=== PATIENT | female | born 1990 | race Caucasian/White ===

== ENCOUNTER 2020-12-11 10:08 | Day surgery (SDC) | payer OTHER ==
[2020-12-09 14:07] VITALS: BMI 38.7
--- NOTE | 2020-12-11 09:46 | P.GSHP ---
History of Present Illness H&P Date: 12/11/20 CHIEF COMPLAINT: Colon screen HISTORY OF PRESENT ILLNESS: The patient is a 30-year-old female who presents for colon screen. Lower endoscopy was offered for further evaluation and management. PAST MEDICAL HISTORY: Please see list. PAST SURGICAL HISTORY: Please see list. MEDICATIONS: Please see list. ALLERGIES: Please see list. SOCIAL HISTORY: No illicit drug use FAMILY HISTORY: No reports of Crohn disease or ulcerative colitis. REVIEW OF ORGAN SYSTEMS: CONSTITUTIONAL: No reports of fevers or chills. PHYSICAL EXAM: VITAL SIGNS: Stable GENERAL: Well-developed pleasant in no acute distress. HEENT: No scleral icterus. Extraocular movements grossly intact. Moist buccal mucosa. NECK: Supple without lymphadenopathy. CHEST: Unlabored respirations. Equal bilateral excursions. CARDIOVASCULAR: Regular rate and rhythm. Distal 2+ pulses. ABDOMEN: Soft, nontender, nondistended. MUSCULOSKELETAL: No clubbing, cyanosis, or edema. ASSESSMENT: 1. Colon screen. PLAN: 1. Recommend proceeding with a lower endoscopy Past Medical History Past Medical History: Chest Pain / Angina, COPD, GERD/Reflux, Hypertension, Myocardial Infarction ([place]) Additional Past Medical History / Comment(s): hemorrhoid. allergies Last Myocardial Infarction Date:: 2010 History of Any Multi-Drug Resistant Organisms: None Reported Past Surgical History: Cholecystectomy, Tonsillectomy Past Anesthesia/Blood Transfusion Reactions: Motion Sickness Smoking Status: Former smoker Medications and Allergies Home Medications Medication Instructions Recorded Confirmed Type Cetirizine HCl [Zyrtec] 10 mg PO HS 12/09/20 12/09/20 History Docusate [Colace] 100 mg PO DAILY 12/09/20 12/09/20 History LORazepam [Ativan] 0.5 mg PO DAILY PRN 12/09/20 12/09/20 History Levothyroxine Sodium [Synthroid] 125 mcg PO DAILY 12/09/20 12/09/20 History Metoprolol Succinate [Kapspargo 25 mg PO DAILY 12/09/20 12/09/20 History Sprinkle] Nortriptyline [Pamelor] 100 mg PO DAILY 12/09/20 12/09/20 History Omeprazole [PriLOSEC] 40 mg PO HS 12/09/20 12/09/20 History lisinopriL 40 mg PO HS 12/09/20 12/09/20 History medroxyPROGESTERone [Depo-Provera] 150 mg IM Q3M 12/09/20 12/09/20 History polyethylene glycoL 3350 [Miralax] 17 gm PO DAILY 12/09/20 12/09/20 History rOPINIRole HCL [Requip] 1 mg PO HS 12/09/20 12/09/20 History Allergies Allergy/AdvReac Type Severity Reaction Status Date / Time Penicillins Allergy Rash/Hives Verified 12/09/20 13:54 sulfamethoxazole Allergy Nausea & Verified 12/09/20 13:54 [From Bactrim] Vomiting trimethoprim [From Bactrim] Allergy Nausea & Verified 12/09/20 13:54 Vomiting
[~2020-12-11 10:08] MED LIST: LACTATED RINGERS 1,000 ML IV SCH; LIDOCAINE 1% (10MG/ML) FOR IV START INTRADERMA PRN
[2020-12-11 10:35] VITALS: TEMP 97.8
[2020-12-11] MEDS ORDERED: LIDOCAINE 1% INJ 10MG/ML (20 ML MDV) ONE (11:17)
[2020-12-11] MEDS ORDERED: PROPOFOL 10 MG/ML 20 ML VIAL IV ONE (11:17)
[2020-12-11 11:55] VITALS: RESP 18
[2020-12-11 12:03] VITALS: BP 120/76; PULSE 86
--- NOTE | 2020-12-16 05:48 | P.PCN ---
Date of Procedure: 12/11/20 Description of Procedure: PREOPERATIVE DIAGNOSIS: Rectal bleeding Anorectal pain Change in bowel habits POSTOPERATIVE DIAGNOSIS: Anal fissure Internal/external complicated greater hemorrhoids Sigmoid colon polyp OPERATION: Colonoscopy to the cecum, ileocecal valve and appendiceal orifice. Colonoscopy with cold forceps biopsy SURGEON: Jacinta Reyes MD. ANESTHESIA: MAC. INDICATIONS: The patient is a 30-year-old female who presents with change in bowel habits including anorectal pain and rectal bleeding. Benefits and risks were described and informed consent was obtained. DESCRIPTION OF PROCEDURE: The patient had undergone Suprep. She had been brought into the operating room and laid in the left lateral decubitus position. After adequate intravenous sedation, the rectum was examined with 2% lidocaine jelly. External hemorrhoids were encountered. The rectal tone was within normal limits. No lesions were palpated in the rectal vault. An Olympus colonoscope was advanced until the cecum, ileocecal valve and appendiceal orifice were clearly viewed. The prep was excellent. No scattered diverticulosis was encountered. A 4 mm sigmoid colon polyp at 35 cm from the anal verge was removed using cold forceps. No evidence of focal colitis was found. Retroflexion of the scope demonstrated grade 3 internal hemorrhoids without active bleeding but with recent inflammation. The colon was desufflated. The patient had tolerated the procedure well. Withdrawal time was over 6 minutes. FINDINGS: Aronchick preparation quality scale 1 (1-5) Internal hemorrhoids, grade 3 External prolapsed hemorrhoids, grade 3 Anorectal fissure 2 without active bleeding but with inflammation No arteriovenous malformations. A 4 mm sigmoid colon polyp at 35 cm from the anal verge was removed using cold forceps. No focal colitis. RECOMMENDATIONS: Lower endoscopy in 8 years, 2028 due to polyps Sitz baths for anal fissure Lidocaine cream for anal fissure Plan - Discharge Summary Discharge Rx Participant: No New Discharge Prescriptions: New Lidocaine [Lidocaine 5% Rectal Cream] 1 applic RECTAL BID #15 gm Continue rOPINIRole HCL [Requip] 1 mg PO HS lisinopriL 40 mg PO HS Omeprazole [PriLOSEC] 40 mg PO HS Docusate [Colace] 100 mg PO DAILY polyethylene glycoL 3350 [Miralax] 17 gm PO DAILY Nortriptyline [Pamelor] 100 mg PO DAILY Metoprolol Succinate [Kapspargo Sprinkle] 25 mg PO DAILY Levothyroxine Sodium [Synthroid] 125 mcg PO DAILY LORazepam [Ativan] 0.5 mg PO DAILY PRN PRN Reason: Anxiety Cetirizine HCl [Zyrtec] 10 mg PO HS medroxyPROGESTERone [Depo-Provera] 150 mg IM Q3M Discharge Medication List Cetirizine HCl [Zyrtec] 10 mg PO HS 12/09/20 [History] Docusate [Colace] 100 mg PO DAILY 12/09/20 [History] LORazepam [Ativan] 0.5 mg PO DAILY PRN 12/09/20 [History] Levothyroxine Sodium [Synthroid] 125 mcg PO DAILY 12/09/20 [History] Metoprolol Succinate [Kapspargo Sprinkle] 25 mg PO DAILY 12/09/20 [History] Nortriptyline [Pamelor] 100 mg PO DAILY 12/09/20 [History] Omeprazole [PriLOSEC] 40 mg PO HS 12/09/20 [History] lisinopriL 40 mg PO HS 12/09/20 [History] medroxyPROGESTERone [Depo-Provera] 150 mg IM Q3M 12/09/20 [History] polyethylene glycoL 3350 [Miralax] 17 gm PO DAILY 12/09/20 [History] rOPINIRole HCL [Requip] 1 mg PO HS 12/09/20 [History] Lidocaine [Lidocaine 5% Rectal Cream] 1 applic RECTAL BID #15 gm 12/11/20 [Rx] Follow up Appointment(s)/Referral(s): Jacinta Reyes MD [STAFF PHYSICIAN] - 12/17/20 Patient Instructions/Handouts: *[facility] - (Anesthesia) Endoscopy Discharge Instructions, Hemorrhoids (DC), Rectal Bleeding (DC), Anal Fissure (DC), Sitz Bath (DC) Activity/Diet/Wound Care/Special Instructions: Do sitz bath, soak in bath tub, 15 minutes warm water three times daily including after bowel movements. Use lidocaine jelly on anus for pain twice daily Discharge Disposition: HOME SELF-CARE
== END 2020-12-11 12:37 | disposition home or self-care (01) ==
LOC: ORWHC2ENDO 10:08
PROVIDERS: ATTEND Surgery Plastic and Reconstructive Surgery
DX: K63.5 Polyp of colon (principal); K60.2 Anal fissure, unspecified; K64.2 Third degree hemorrhoids; K64.8 Other hemorrhoids; I10 Essential (primary) hypertension; I25.2 Old myocardial infarction; J44.9 Chronic obstructive pulmonary disease, unspecified; E07.9 Disorder of thyroid, unspecified; K21.9 Gastro-esophageal reflux disease without esophagitis; F17.290 Nicotine dependence, other tobacco product, uncomplicated; Z88.8 Allergy status to other drugs, medicaments and biological substances; Z88.2 Allergy status to sulfonamides; Z88.0 Allergy status to penicillin; Z79.899 Other long term (current) drug therapy; Z79.890 Hormone replacement therapy; Z90.49 Acquired absence of other specified parts of digestive tract; Z90.89 Acquired absence of other organs; Z91.89 Other specified personal risk factors, not elsewhere classified; Z91.048 Other nonmedicinal substance allergy status; Z87.898 Personal history of other specified conditions
CPT/HCPCS: 81025; 88305; 45380; J2001; J2704

== ENCOUNTER → 2022-11-03 | Outpatient (CLI) | payer OTHER ==
--- NOTE | 2022-11-03 15:18 | USB ---
Reason for Exam: Clinical finding. Findings: The lower section of the breast of the left breast and the retroareolar of the left breast were scanned. No solid or cystic masses are identified within the left breast. Skin lesion noted at the left 6:00 position which may reflect small hemangioma or AV malformation measuring 6 x 2 mm.. Overall Assessment: Benign, BI-RAD 2 Management: Screening Mammogram of both breasts at age 38. A clinical breast exam by your physician is recommended on an annual basis and results should be correlated with mammographic findings. This exam should not preclude additional follow-up of suspicious palpable abnormalities. Results were given to the patient verbally at the time of exam. Electronically signed and approved by: Joni Kilpatrick M.D. Radiologis
--- NOTE | 2022-11-03 15:33 | US ---
EXAMINATION TYPE: US mass soft tissue chest/back DATE OF EXAM: 11/03/2022 COMPARISON: NONE CLINICAL HISTORY: R22.2 MASS IN BACK . Right lower back mass for 2 months In area of concern, right lower medial back: A hyperechoic oval shaped non-vascular mass is visualized measuring 1.3 x 0.61 x 2.1 cm. IMPRESSION: Probable lipoma correlate clinically.
== END | disposition home or self-care (01) ==
LOC: RADUSWWP 14:44
PROVIDERS: ATTEND Surgery Plastic and Reconstructive Surgery
DX: R22.2 Localized swelling, mass and lump, trunk (principal); N63.20 Unspecified lump in the left breast, unspecified quadrant